=== PATIENT | male | born 1960 ===

== ENCOUNTER 2023-11-08 12:46 | Emergency (ER) | payer OTHER ==
[2023-11-08 14:25] LABS: Absolute Eosinophils 0.2 K/uL (0-0.5); Absolute Lymphocytes (CBC) 0.6 K/uL (0.7-4.9); Absolute Monocytes 0.4 K/uL (0.1-1.3); Absolute Neutrophil 2.6 K/uL (1.8-8.0); Basophils % 0.9 % (0-1.3); Eosinophils % 5.3 % (0-4.4); Hematocrit 53.1 % (39.6-49.0); Hemoglobin 17.9 g/dL (13.6-17.9); Lymphocytes % 16.7 % (15.3-44.8); MCH 31.3 pg (27.0-35.0); MCHC 33.6 g/dL (32.0-36.0); MCV 92.9 fL (80-100); Monocytes % 9.8 % (3.3-12.3); Neutrophils % 67.3 % (41.7-73.7); Nucleated Red Blood Cells % 0.9 % (0-0); Platelets 106 thou/uL (152-406); RBC Red Blood Cell Count 5.71 M/uL (4.33-5.43); Red Cell Distribution Width 13.1 % (12.1-15.2)
[2023-11-08 14:32] LABS: PT Prothrombin Time 11.7 SECONDS (9.4-12.5); Protime INR 1.05
--- NOTE | 2023-11-08 14:32 | RAD REPORT ---
EXAM DESCRIPTION: RAD - Chest Single View - 11/08/2023 2:16 pm CLINICAL HISTORY: blood pressure problem COMPARISON: Chest Pa And Lat (2 Views) dated 04/27/2021; Abdomen 1 View (KUB) dated 09/22/2015; Abdome n 1 View (KUB) dated 09/03/2015; CHEST PA AND LAT 2 VIEW dated 02/14/2014 FINDINGS: Lines: Pacemaker/ICD. Lungs: No evidence of edema or pneumonia. Pleural: No significant pleural effusions or pneumothorax. Cardiac: The heart size is within normal limits. Mediastinum: Within normal limits. Bones: No acute fractures. Other: None IMPRESSION: No acute cardiopulmonary disease.
[2023-11-08 16:11] LABS: Albumin 4.2 g/dL (3.4-5.0); Albumin/Globulin Ratio 1.4 (1.1-1.8); Bilirubin Direct 0.2 mg/dL (0-0.2); Bilirubin Indirect, Calculated 0.6 mg/dL (0.2-0.8); Bilirubin Total 0.8 mg/dL (0.2-1.0); Magnesium 2.1 mg/dL (1.6-2.4); Protein, Total 7.2 g/dL (6.4-8.2); Troponin High Sensitivity 6.6 pg/mL (<58.9)
--- NOTE | 2023-11-08 17:17 | EDPHYS ---
Physician Documentation [facility] Name: Adilson Flood Age: 63 yrs Sex: Male : 1960 Arrival Date: 11/08/2023 Time: 12:46 Bed 14 Private MD: ED Physician Js Mendieta HPI: 11/07 16:24 This 63 yrs old Unknown Male presents to ER via Ambulatory with complaints of Blood felipe Pressure Problem. 16:24 htn , taking testosterone. Onset: The symptoms/episode began/occurred 2 day(s) ago. felipe Severity of symptoms: At their worst the symptoms were very mild in the emergency department the symptoms are unchanged. The patient has experienced similar episodes in the past, several times. Historical: - Allergies: 13:09 Sulfa (Sulfonamide Antibiotics); nj1 - Home Meds: 13:03 losartan-hydrochlorothiazide 100-12.5 mg oral tablet 1 tab daily [Active]; metoprolol nj1 succinate 50 mg oral Tablet, Extended Release 24 hr 1 tab daily [Active]; - PMHx: 13:09 Hypertension; Hyperlipidemia; nj1 - PSHx: 13:09 Stented artery; Pacemaker/defibrillator in situ; nj1 - Immunization history:: Client reports having NOT received the Covid vaccine. - Infectious Disease History:: Denies. - Social history:: Smoking status: Patient denies any tobacco usage or history of. - Family history:: not pertinent. ROS: 16:24 Constitutional: Negative for fever, chills, and weight loss, Eyes: Negative for injury, felipe pain, redness, and discharge, ENT: Negative for injury, pain, and discharge, Neck: Negative for injury, pain, and swelling, Cardiovascular: Negative for chest pain, palpitations, and edema, Respiratory: Negative for shortness of breath, cough, wheezing, and pleuritic chest pain, Abdomen/GI: Negative for abdominal pain, nausea, vomiting, diarrhea, and constipation, Back: Negative for injury and pain, : Negative for injury, bleeding, discharge, and swelling, MS/Extremity: Negative for injury and deformity, Skin: Negative for injury, rash, and discoloration, Neuro: Negative for headache, weakness, numbness, tingling, and seizure, Psych: Negative for depression, anxiety, suicide ideation, homicidal ideation, and hallucinations, Allergy/Immunology: Negative for hives, rash, and allergies, Endocrine: Negative for neck swelling, polydipsia, polyuria, polyphagia, and marked weight changes, Hematologic/Lymphatic: Negative for swollen nodes, abnormal bleeding, and unusual bruising, Exam: 16:24 Constitutional: This is a well developed, well nourished patient who is awake, alert, felipe and in no acute distress. Head/Face: Normocephalic, atraumatic. Eyes: Pupils equal round and reactive to light, extra-ocular motions intact. Lids and lashes normal. Conjunctiva and sclera are non-icteric and not injected. Cornea within normal limits. Periorbital areas with no swelling, redness, or edema. ENT: Nares patent. No nasal discharge, no septal abnormalities noted. Tympanic membranes are normal and external auditory canals are clear. Oropharynx with no redness, swelling, or masses, exudates, or evidence of obstruction, uvula midline. Mucous membranes moist. Neck: Trachea midline, no thyromegaly or masses palpated, and no cervical lymphadenopathy. Supple, full range of motion without nuchal rigidity, or vertebral point tenderness. No Meningismus. Chest/axilla: Normal chest wall appearance and motion. Nontender with no deformity. No lesions are appreciated. Cardiovascular: Regular rate and rhythm with a normal S1 and S2. No gallops, murmurs, or rubs. Normal PMI, no JVD. No pulse deficits. Respiratory: Lungs have equal breath sounds bilaterally, clear to auscultation and percussion. No rales, rhonchi or wheezes noted. No increased work of breathing, no retractions or nasal flaring. Abdomen/GI: Soft, non-tender, with normal bowel sounds. No distension or tympany. No guarding or rebound. No evidence of tenderness throughout. Back: No spinal tenderness. No costovertebral tenderness. Full range of motion. Male : Normal genitalia with no discharge or lesions. Skin: Warm, dry with normal turgor. Normal color with no rashes, no lesions, and no evidence of cellulitis. MS/ Extremity: Pulses equal, no cyanosis. Neurovascular intact. Full, normal range of motion. Neuro: Awake and alert, GCS 15, oriented to person, place, time, and situation. Cranial nerves II-XII grossly intact. Motor strength 5/5 in all extremities. Sensory grossly intact. Cerebellar exam normal. Normal gait. Psych: Awake, alert, with orientation to person, place and time. Behavior, mood, and affect are within normal limits. 16:24 ECG was reviewed by the Attending Physician. Vital Signs: 13:04 BP 161 / 100; Pulse 77; Resp 18; Temp 98.2; Pulse Ox 97% on R/A; Weight 113.4 kg; nj1 Height 6 ft. 5 in. ; 15:46 BP 138 / 90; Pulse 59; Resp 18; Pulse Ox 98% on R/A; ph 13:04 Body Mass Index 29.65 (113.40 kg, 195.58 cm) nj1 MDM: 12:57 Patient medically screened. [facility] 16:27 Differential Diagnosis altered mental status, sepsis, flu. Data reviewed: vital signs, [facility] nurses notes, lab test result(s), EKG, radiologic studies, plain films. Consideration of Admission/Observation Escalation of care including admission/observation considered. I considered the following discharge prescriptions or medication management in the emergency department Medications were administered in the Emergency Department. See MAR. Independent interpretation of the following test(s) in the Emergency Department EKG: See my EKG interpretation above. Test considered but Not performed: Ultrasound no 2 d echo. Care significantly affected by the following chronic conditions: Hypertension, pacemaker, hyperlipids, low t. 08 13:57 Order name: Basic Metabolic Panel; Complete Time: 16:16 [facility] 11/07 13:57 Order name: Liver (Hepatic) Function; Complete Time: 16:16 [facility] 11/07 13:57 Order name: Troponin High Sensitivity; Complete Time: 16:16 [facility] 11/07 13:57 Order name: Magnesium; Complete Time: 16:16 [facility] 11/07 13:57 Order name: CBC with Automated Diff; Complete Time: 15:28 [facility] 11/07 13:57 Order name: Protime (+INR); Complete Time: 15:28 [facility] 11/07 13:53 Order name: Chest Single View; Complete Time: 15:28 [facility] 11/07 13:21 Order name: Cardiac monitoring; Complete Time: 15:49 [facility] 11/07 13:21 Order name: EKG - Nurse/Tech; Complete Time: 13:53 [facility] 11/07 13:21 Order name: IV Saline Lock; Complete Time: 13:53 [facility] 11/07 13:21 Order name: Labs collected and sent; Complete Time: 13:53 [facility] 11/07 13:21 Order name: O2 Per Protocol; Complete Time: :53 [facility] 11/07 13:21 Order name: O2 Sat Monitoring; Complete Time: :53 [facility] 11/07 14:16 Order name: Labs - recollect needed: label sent; Complete Time: 15:49 ap3 EC:24 Rate is 65 beats/min. Rhythm is regular. QRS [place] is Normal. [place] interval is normal. QRS felipe interval is normal. QT interval is normal. No Q waves. T waves are Normal. No ST changes noted. Clinical impression: Abnormal EKG without significant change and No evidence of ischemia. Interpreted by me. Reviewed by me. Administered Medications: 16:49 Not Given (Patient Refused): ns 0.9% 500 ml IV at bolus once mb9 16:49 Not Given (Patient Refused): ativan0.5 mg IVP once mb9 Disposition Summary: 11/08/23 16:29 Discharge Ordered Notes: Location: Home felipe Problem: new felipe Symptoms: have improved felipe Condition: Stable felipe Diagnosis - Essential (primary) hypertension felipe - Adverse effect of unspecified drugs, medicaments and biological substances - felipe testosterone - Presence of cardiac pacemaker felipe Followup: felipe - With: Private Physician - When: 2 - 3 days - Reason: Recheck today's complaints, Continuance of care, Re-evaluation by your physician Discharge Instructions: - Discharge Summary Sheet felipe - Hypertension, Adult felipe - Hypertension, Adult, [id number] felipe - How to Take Your Blood Pressure, [id number] felipe - Aspirin and Your Heart felipe - Managing Your Hypertension felipe Forms: - Medication Reconciliation Form felipe - Antibiotic Education felipe - Prescription Opioid Use felipe - Patient Portal Instructions felipe - Leadership Thank You Letter felipe Signatures: Dispatcher [employer] EDJs Lovett MD MD cha Prokisch, Amanda RN RN ap3 Yaquelin Mckeon RN RN nj1 Michelle Cruz RN mb9 Corrections: (The following items were deleted from the chart) 15:50 13:57 NT PRO-BNP ordered. EDMS EDMS
--- NOTE | 2023-11-08 17:17 | ER ---
Nurse's Notes [facility] Name: Adilson Flood Age: 63 yrs Sex: Male : 1960 Arrival Date: 11/08/2023 Time: 12:46 Bed 14 Private MD: Diagnosis: Essential (primary) hypertension;Adverse effect of unspecified drugs, medicaments and biological substances-testosterone;Presence of cardiac pacemaker Presentation: 11/07 13:04 Chief complaint: Patient states: Placed on testosterone 3 weeks ago, told it could nj1 increased his blood pressure. 3 days ago, noticed bp reading higher than normal. Went to urgent care, bp 164/106. No chest pain, no sob. Coronavirus screen: Vaccine status: Patient reports being unvaccinated. Ebola Screen: Patient denies travel to an Ebola-affected area in the 21 days before illness onset. Initial Sepsis Screen: Does the patient meet any 2 criteria? No. Patient's initial sepsis screen is negative. Does the patient have a suspected source of infection? No. Patient's initial sepsis screen is negative. Risk Assessment: Do you want to hurt yourself or someone else? Patient reports no desire to harm self or others. Onset of symptoms was November 2023. 13:04 Acuity: LEOPOLDO 3 nj1 13:04 Method Of Arrival: Ambulatory [facility] Triage Assessment: 13:09 General: Appears in no apparent distress. comfortable, Behavior is calm, cooperative, nj1 appropriate for age. Pain: Denies pain. Neuro: Level of Consciousness is awake, alert, obeys commands, Oriented to person, place, time, situation. Cardiovascular: Patient's skin is warm and dry. Cardiovascular: Denies chest pain, shortness of breath. Respiratory: Airway is patent Respiratory effort is even, unlabored. Historical: - Allergies: 13:09 Sulfa (Sulfonamide Antibiotics); nj1 - Home Meds: 13:03 losartan-hydrochlorothiazide 100-12.5 mg oral tablet 1 tab daily [Active]; metoprolol nj1 succinate 50 mg oral Tablet, Extended Release 24 hr 1 tab daily [Active]; - PMHx: 13:09 Hypertension; Hyperlipidemia; nj1 - PSHx: 13:09 Stented artery; Pacemaker/defibrillator in situ; nj1 - Immunization history:: Client reports having NOT received the Covid vaccine. - Infectious Disease History:: Denies. - Social history:: Smoking status: Patient denies any tobacco usage or history of. - Family history:: not pertinent. Screenin:47 [facility] ED Fall Risk Assessment (Adult) History of falling in the last 3 months, ph including since admission No falls in past 3 months (0 pts) Confusion or Disorientation No (0 pts) Intoxicated or Sedated No (0 pts) Impaired Gait No (0 pts) Mobility Assist Device Used No (0 pt) Altered Elimination No (0 pt) Score/Fall Risk Level 0 - 2 = Low Risk Oriented to surroundings, Maintained a safe environment, Hourly rounding (assess needs \T\ fall precautionary measures) done. Abuse screen: Denies threats or abuse. Denies injuries from another. Nutritional screening: No deficits noted. Tuberculosis screening: No symptoms or risk factors identified. Assessment: 15:48 General: Appears in no apparent distress. Behavior is calm, cooperative. Pain: Denies ph pain. Neuro: Level of Consciousness is awake, alert, obeys commands, Oriented to person, place, time, situation, Denies dizziness. Cardiovascular: Denies chest pain, fatigue, lightheadedness, shortness of breath. Respiratory: Airway is patent Respiratory effort is even, unlabored. Derm: Skin is pink, warm \T\ dry. Vital Signs: 13:04 BP 161 / 100; Pulse 77; Resp 18; Temp 98.2; Pulse Ox 97% on R/A; Weight 113.4 kg; nj1 Height 6 ft. 5 in. ; 15:46 BP 138 / 90; Pulse 59; Resp 18; Pulse Ox 98% on R/A; ph 13:04 Body Mass Index 29.65 (113.40 kg, 195.58 cm) [facility] ED Course: 12:49 Patient arrived in ED. ra3 12:57 Js Mendieta MD is Attending Physician. [facility] 13:08 Triage completed. nj1 13:08 Arm band placed on right wrist. nj1 13:53 Inserted saline lock: 20 gauge in left antecubital area, using aseptic technique. Blood jr12 collected. Flushed with 10 mL NS. 13:53 EKG done, by ED staff, reviewed by Js Mendieta MD. jr12 14:18 Chest Single View In Process Unspecified. EDMS 15:14 Dede Garcia, RN is Primary Nurse. ph 15:47 Patient has correct armband on for positive identification. Call light in reach. Side ph rails up X2. Pulse ox on. NIBP on. Door closed. Noise minimized. PO fluids given. 16:49 No provider procedures requiring assistance completed. IV discontinued, intact, mb9 bleeding controlled, No redness/swelling at site. Pressure dressing applied. Administered Medications: 16:49 Not Given (Patient Refused): ns 0.9% 500 ml IV at bolus once mb9 16:49 Not Given (Patient Refused): ativan0.5 mg IVP once mb9 Medication: 15:47 VIS not applicable for this client. ph Outcome: 16:29 Discharge ordered by . felipe 16:50 Discharged to home ambulatory, mb9 16:50 Condition: stable 16:50 Discharge instructions given to patient, Instructed on discharge instructions, follow up and referral plans. Demonstrated understanding of instructions, follow-up care, 16:50 Patient left the ED. mb9 Signatures: Dispatcher [employer] EDMS Js Mendieta MD MD cha Hall, Patricia RN RN Nancy, Michelle Baez RN RN mb9 Yaquelin Mckeon RN RN nj1 Delfina, Janeth [facility] Kristina Richardson ra3
[2023-11-09 04:57] VITALS: TEMP 98.2
[2023-11-09 04:58] VITALS: BP 138/90; O2SAT 98
--- NOTE | 2023-11-10 13:13 | EKG ---
Test Date: 2023-11-08 Test Time: 13:46:49 Printing Plate Setter: DEANN MEASUREMENT RESULTS: Intervals: Rate: 65 KS: 160 QRSD: 178 QT: 470 QTc: 488 [place]: P: KS: 160 QRS: 206 T: 87 INTERPRETIVE STATEMENTS: AV sequential or dual chamber electronic pacemaker No previous ECG available for comparison Electronically Signed On 11-10-23 13:06:28 CDT by Joseph Joiner
== END 2023-11-08 16:50 | disposition home or self-care (01) ==
LOC: ER 12:46
DX: I10 Essential (primary) hypertension (principal); T50.995A Adverse effect of other drugs, medicaments and biological substances, initial encounter; Z95.810 Presence of automatic (implantable) cardiac defibrillator
CPT/HCPCS: 36415; 71045; 80048; 80076; 83735; 84484; 85025; 85610; 93005; 99284